=== PATIENT | female | born 1940 | race Caucasian/White ===

== ENCOUNTER 2023-08-09 11:43 | Inpatient (IN) ==
[2023-08-09] MEDS ORDERED: Polyethylene Glycol 3350 17 GM PACKET PO PRN (14:46)
[2023-08-09] MEDS ORDERED: Senna TAB 8.6 mg TAB PO PRN (14:46)
[2023-08-09] MEDS ORDERED: Magnesium Hydroxide LIQ 30 ML UDC PO PRN (14:46)
[2023-08-09] MEDS ORDERED: Al Hydrox/Mg Hydrox/Simet LIQ 30 ML UDC PO PRN (14:46)
[2023-08-09] MEDS ORDERED: Albuterol HFA INHALER 8 gm MDI INH PRN (14:52)
[2023-08-09] MEDS: CMCS:FLUTICAS/UMECLI/VILANT 200-62.5-25 MDI (NF) INH SCH (16:19)
[2023-08-09] MEDS: Heparin 5000 UNITS/ML 1 mL VIAL SUBCUT ONE (16:28)
[2023-08-09] MEDS: CMCS:SitaGLIPtin 100 mg TAB (NF) PO SCH (17:42)
[2023-08-09] MEDS: Morphine 2 MG/ML SYRINGE IV PRN (20:20)
[2023-08-09] MEDS: Lactated Ringers 1000 ml BAG 1,000 ML IV SCH (23:40)
[2023-08-09] MEDS: Ondansetron 4 mg VIAL 2 MG/ML 2 ml VIAL IV PRN (23:45)
[2023-08-10 06:28] LABS: INR 1.13 (0.83-1.13)
[2023-08-10 06:29] LABS: ABS Lymphocytes 0.9 10^3/uL (1.0-4.8); ABS Monocytes 0.4 10^3/uL (0.0-0.9); ABS Neutrophils 5.4 10^3/uL (1.5-7.6); Eosinophil % 0.7 %; Hematocrit 29.6 % (35-45); Hemoglobin 9.9 g/dL (11.5-14.3); Lymphocyte % 13.7 %; Mean Corpuscular Hemoglobin 31.1 pg (27-33); Mean Corpuscular Hgb Conc 33.6 g/dL (31-36); Mean Corpuscular Volume 92.5 fL (80-97); Mean Platelet Volume 7.4 fL (7.5-11.2); Nucleated Red Blood Cells % 0.1 %/100WBC (0.0-0.8); Platelet Count 178 10^3/uL (150-450); Red Cell Distribution Width 14.2 % (12-17); White Blood Count 6.8 10^3/uL (3.8-11.8)
[2023-08-10 06:50] LABS: Calcium 8.9 mg/dL (8.6-10.3); Creatinine, Serum 1.32 mg/dL (0.51-0.95); Magnesium 1.8 mg/dL (1.9-2.7); Potassium 5.5 mmol/L (3.5-5.0); eGFR CKD-EPI 40.8 (>60)
[2023-08-10] MEDS: Dextrose 50% Syringe 50 ml 25 GM/50 ML SYRINGE IV PUSH ONE (08:38)
[2023-08-10] MEDS ORDERED: FLUTICAS/UMECLI/VILANT 200-62.5-25 MDI (NF) INH SCH (09:00)
[2023-08-10] MEDS ORDERED: Sitagliptin 50 mg TAB (NF) PO SCH (09:00)
[2023-08-10] MEDS: Magnesium Sulfate IV 1GM/100ML 1 GM/100 ML BAG IV ONE (09:07)
[2023-08-10] MEDS: SODIUM ZIRCONIUM CYCLOSILICATE 10 GM PACKET PO ONE ×3 (09:19→19:23)
[2023-08-10 17:43] LABS: Calcium 8.7 mg/dL (8.6-10.3); Creatinine, Serum 1.21 mg/dL (0.51-0.95); Potassium 4.9 mmol/L (3.5-5.0); eGFR CKD-EPI 45.3 (>60)
[2023-08-10] MEDS: Heparin 5000 UNITS/ML 1 mL VIAL SUBCUT ONE (18:56)
[2023-08-11 05:37] LABS: ABS Eosinophils 0.1 10^3/uL (0.0-0.5); ABS Lymphocytes 0.8 10^3/uL (1.0-4.8); ABS Monocytes 0.5 10^3/uL (0.0-0.9); ABS Neutrophils 5.7 10^3/uL (1.5-7.6); Eosinophil % 0.8 %; Hematocrit 27.8 % (35-45); Hemoglobin 9.5 g/dL (11.5-14.3); Lymphocyte % 11.1 %; Mean Corpuscular Hemoglobin 31.2 pg (27-33); Mean Corpuscular Hgb Conc 34.1 g/dL (31-36); Mean Corpuscular Volume 91.5 fL (80-97); Nucleated Red Blood Cells % 0.1 %/100WBC (0.0-0.8); Platelet Count 154 10^3/uL (150-450); Red Blood Count 3.03 10^6/uL (3.63-4.92); Red Cell Distribution Width 14.2 % (12-17)
[2023-08-11 05:51] LABS: Calcium 8.6 mg/dL (8.6-10.3); Creatinine, Serum 1.09 mg/dL (0.51-0.95); Magnesium 1.7 mg/dL (1.9-2.7); Potassium 4.6 mmol/L (3.5-5.0); eGFR CKD-EPI 51.4 (>60)
[2023-08-11] MEDS: Magnesium Sulfate 2 gm BAG 2 GM/50 ML BAG IVPB ONE (09:10)
[2023-08-11] MEDS: Lactated Ringers 1000 ml BAG 1,000 ML IV SCH ×2 (09:12→19:51)
[2023-08-11] MEDS: Buffered Lidocaine 1% SYRIN 1 ml INTRADERM ONE (10:14)
[2023-08-11] MEDS: Magnesium Sulfate IV 1GM/100ML 1 GM/100 ML BAG IV ONE (11:40)
[2023-08-11] MEDS ORDERED: ROPIVACAINE 5 MG/ML 30 ML BTL (0.5%) ONE (13:04)
[2023-08-11] MEDS ORDERED: Propofol 10 MG/ML 20 ML BTL ONE ×2 (13:15→16:09)
[2023-08-11] MEDS ORDERED: Ondansetron 4 mg VIAL 2 MG/ML 2 ml VIAL IV PRN (13:17)
[2023-08-11] MEDS ORDERED: fentaNYL 100 mcg/2 ml 50 MCG/ML VIAL IV PRN (13:17)
[2023-08-11] MEDS ORDERED: Naloxone 0.4 mg VIAL 0.4 mg/ml 1 ml VIAL IV PRN (13:17)
[2023-08-11] MEDS ORDERED: fentaNYL 250 mcg/5 ml 50 MCG/ML 5 ml VIAL (250 MCG) ONE (13:18)
[2023-08-11] MEDS ORDERED: Midazolam 2 mg/2 ml VIAL 1 mg/ml 2 ml VIAL (2 mg) ONE (13:18)
[2023-08-11] MEDS ORDERED: Lidocaine 2% PF 5 ML VIAL ONE (13:18)
[2023-08-11] MEDS ORDERED: Tranexamic Acid 1 GM/100ML BAG 2,000 MG/200 ML BAG IV ONE (13:20)
[2023-08-11] MEDS ORDERED: ceFAZolin 2 GM in NS PREMIX 2 GM/100 ML BAG IVPB ONE (13:41)
[2023-08-11] MEDS ORDERED: ceFAZolin 2 GM PREMIX 2 GM/50 ML BAG ONE (13:44)
[2023-08-11] MEDS ORDERED: KETAMINE HCL 10 MG/ML 20 ml VIAL (200 MG) ONE (13:56)
[2023-08-11] MEDS ORDERED: Bupivacaine 0.5% SDV PF 30ML VIAL ONE (13:57)
[2023-08-11] MEDS ORDERED: Phenylephrine 40 mcg/mL 10mL (400mcg) SYRINGE ONE (14:11)
[2023-08-11] MEDS ORDERED: Phenylephrine IV 10 MG/ML 1 ml VIAL ONE (14:20)
[2023-08-11] MEDS ORDERED: Acetaminophen IV 1 GM/100ML 1,000 MG/100 ML BAG IV ONE (14:54)
[2023-08-11] MEDS ORDERED: Ondansetron 4 mg VIAL 2 MG/ML 2 ml VIAL ONE (14:55)
[2023-08-11] MEDS: Magnesium Hydroxide LIQ 30 ML UDC PO SCH (21:15)
[2023-08-11] MEDS: ceFAZolin 1 GM ADVAN 1 GM in NS 0.9% 50 ML 50 ML IVPB SCH (22:32)
[2023-08-12 06:54] LABS: ABS Lymphocytes 0.5 10^3/uL (1.0-4.8); ABS Monocytes 0.4 10^3/uL (0.0-0.9); ABS Neutrophils 5.9 10^3/uL (1.5-7.6); Eosinophil % 0.5 %; Hematocrit 24.8 % (35-45); Hemoglobin 8.3 g/dL (11.5-14.3); Lymphocyte % 7.6 %; Mean Corpuscular Hemoglobin 30.4 pg (27-33); Mean Corpuscular Hgb Conc 33.6 g/dL (31-36); Mean Corpuscular Volume 90.6 fL (80-97); Mean Platelet Volume 7.6 fL (7.5-11.2); Platelet Count 164 10^3/uL (150-450); Red Blood Count 2.74 10^6/uL (3.63-4.92); Red Cell Distribution Width 14.3 % (12-17); White Blood Count 6.8 10^3/uL (3.8-11.8)
[2023-08-12 08:03] LABS: Albumin 3.1 g/dL (3.2-5.2); Albumin/Globulin Ratio 1.2 (1-3); Calcium 8.3 mg/dL (8.6-10.3); Creatinine, Serum 1.17 mg/dL (0.51-0.95); Globulin 2.5 g/dL (2-4); Total Bilirubin 0.5 mg/dL (0.2-1.0); Total Protein 5.6 g/dL (6.4-8.9); eGFR CKD-EPI 47.2 (>60)
[2023-08-12 12:51] LABS: % Iron Saturation 10 % (15-55); .Transferrin 142 mg/dL (203-362); Iron < 20 ug/dL (50-212); Total Iron Binding Capacity 199 mcg/dL (250-450); Unsaturated Iron Binding 179 ug/dL
[2023-08-12] MEDS: Enoxaparin 40 MG/0.4 ML SYR SUBCUT SCH (12:57)
[2023-08-12 13:11] LABS: Ferritin 311.2 ng/mL (11-307)
[2023-08-12] MEDS: Iron Sucrose 200 MG in NS 0.9% 100 ml BAG 100 ML IVPB SCH (17:43)
[2023-08-12] MEDS: SODIUM ZIRCONIUM CYCLOSILICATE 10 GM PACKET PO SCH (19:55)
[2023-08-13 06:04] LABS: ABS Eosinophils 0.1 10^3/uL (0.0-0.5); ABS Lymphocytes 0.6 10^3/uL (1.0-4.8); ABS Monocytes 0.5 10^3/uL (0.0-0.9); Eosinophil % 2.2 %; Hematocrit 23.8 % (35-45); Mean Corpuscular Hemoglobin 31.1 pg (27-33); Mean Corpuscular Hgb Conc 33.7 g/dL (31-36); Mean Corpuscular Volume 92.2 fL (80-97); Mean Platelet Volume 7.7 fL (7.5-11.2); Platelet Count 161 10^3/uL (150-450); Red Blood Count 2.58 10^6/uL (3.63-4.92); Red Cell Distribution Width 14.5 % (12-17); White Blood Count 6.1 10^3/uL (3.8-11.8)
[2023-08-13 06:26] LABS: Albumin 3.1 g/dL (3.2-5.2); Albumin/Globulin Ratio 1.2 (1-3); Calcium 8.2 mg/dL (8.6-10.3); Creatinine, Serum 1.49 mg/dL (0.51-0.95); Globulin 2.5 g/dL (2-4); Potassium 4.6 mmol/L (3.5-5.0); Total Bilirubin 0.4 mg/dL (0.2-1.0); Total Protein 5.6 g/dL (6.4-8.9); eGFR CKD-EPI 35.3 (>60)
[2023-08-13] MEDS: Polyethylene Glycol 3350 17 GM PACKET PO SCH (21:41)
[2023-08-14 06:27] LABS: ABS Eosinophils 0.1 10^3/uL (0.0-0.5); ABS Lymphocytes 0.4 10^3/uL (1.0-4.8); ABS Monocytes 0.5 10^3/uL (0.0-0.9); ABS Neutrophils 5.9 10^3/uL (1.5-7.6); Eosinophil % 1.8 %; Hematocrit 22.7 % (35-45); Hemoglobin 7.8 g/dL (11.5-14.3); Lymphocyte % 6.4 %; Mean Corpuscular Hemoglobin 31.5 pg (27-33); Mean Corpuscular Hgb Conc 34.3 g/dL (31-36); Mean Corpuscular Volume 91.8 fL (80-97); Mean Platelet Volume 7.8 fL (7.5-11.2); Platelet Count 197 10^3/uL (150-450); Red Blood Count 2.48 10^6/uL (3.63-4.92); Red Cell Distribution Width 14.7 % (12-17); White Blood Count 6.9 10^3/uL (3.8-11.8)
[2023-08-14 06:51] LABS: Albumin 3.2 g/dL (3.2-5.2); Albumin/Globulin Ratio 1.2 (1-3); Calcium 8.4 mg/dL (8.6-10.3); Creatinine, Serum 1.31 mg/dL (0.51-0.95); Globulin 2.7 g/dL (2-4); Potassium 5.2 mmol/L (3.5-5.0); Total Bilirubin 0.4 mg/dL (0.2-1.0); Total Protein 5.9 g/dL (6.4-8.9); eGFR CKD-EPI 41.2 (>60)
[2023-08-15 06:48] LABS: ABS Eosinophils 0.2 10^3/uL (0.0-0.5); ABS Lymphocytes 0.5 10^3/uL (1.0-4.8); ABS Monocytes 0.4 10^3/uL (0.0-0.9); ABS Nucleated RBC 0.01 10^3/ul; Eosinophil % 2.9 %; Hematocrit 23.2 % (35-45); Hemoglobin 7.9 g/dL (11.5-14.3); Lymphocyte % 8.2 %; Mean Corpuscular Hemoglobin 31.3 pg (27-33); Mean Corpuscular Hgb Conc 34.2 g/dL (31-36); Mean Corpuscular Volume 91.7 fL (80-97); Mean Platelet Volume 7.3 fL (7.5-11.2); Nucleated Red Blood Cells % 0.1 %/100WBC (0.0-0.8); Platelet Count 229 10^3/uL (150-450); Red Blood Count 2.53 10^6/uL (3.63-4.92); Red Cell Distribution Width 14.5 % (12-17); White Blood Count 6.1 10^3/uL (3.8-11.8)
[2023-08-15 07:07] LABS: Albumin 3.2 g/dL (3.2-5.2); Albumin/Globulin Ratio 1.2 (1-3); Calcium 8.4 mg/dL (8.6-10.3); Creatinine, Serum 1.2 mg/dL (0.51-0.95); Globulin 2.7 g/dL (2-4); Magnesium 2.2 mg/dL (1.9-2.7); Phosphorus 2.2 mg/dL (2.5-5.0); Potassium 4.3 mmol/L (3.5-5.0); Total Bilirubin 0.5 mg/dL (0.2-1.0); Total Protein 5.9 g/dL (6.4-8.9); eGFR CKD-EPI 45.8 (>60)
[2023-08-16 06:11] LABS: ABS Eosinophils 0.2 10^3/uL (0.0-0.5); ABS Lymphocytes 0.6 10^3/uL (1.0-4.8); ABS Monocytes 0.4 10^3/uL (0.0-0.9); ABS Neutrophils 4.4 10^3/uL (1.5-7.6); ABS Nucleated RBC 0.01 10^3/ul; Hematocrit 22.5 % (35-45); Hemoglobin 7.6 g/dL (11.5-14.3); Lymphocyte % 10.8 %; Mean Corpuscular Hemoglobin 31.6 pg (27-33); Mean Corpuscular Hgb Conc 33.9 g/dL (31-36); Mean Corpuscular Volume 93.2 fL (80-97); Mean Platelet Volume 7.2 fL (7.5-11.2); Nucleated Red Blood Cells % 0.2 %/100WBC (0.0-0.8); Platelet Count 251 10^3/uL (150-450); Red Blood Count 2.41 10^6/uL (3.63-4.92); Red Cell Distribution Width 14.7 % (12-17); White Blood Count 5.6 10^3/uL (3.8-11.8)
[2023-08-16 06:32] LABS: Albumin 2.9 g/dL (3.2-5.2); Albumin/Globulin Ratio 1.2 (1-3); Calcium 8.1 mg/dL (8.6-10.3); Creatinine, Serum 1.24 mg/dL (0.51-0.95); Globulin 2.4 g/dL (2-4); Phosphorus 2.1 mg/dL (2.5-5.0); Potassium 4.4 mmol/L (3.5-5.0); Total Bilirubin 0.4 mg/dL (0.2-1.0); Total Protein 5.3 g/dL (6.4-8.9)
[2023-08-16 10:04] VITALS: BP 134/65
[2023-08-16 10:34] LABS: Rapid COVID-19 Molecular Undetected (Undetected)
== END 2023-08-16 11:50 | DRG 522 ==
LOC: ED 11:43 → SUATTDRO 14:46 → EDHOLD 14:46 → SSU 18:29
PROVIDERS: ADMIT Hospitalist; ATTEND Internal Medicine

== ENCOUNTER 2023-12-23 09:06 | Observation (INO) ==
[2023-12-23] MEDS ORDERED: Tranexamic Acid 1 GM/100ML BAG 2,000 MG/200 ML BAG IV ONE (10:03)
[2023-12-23] MEDS ORDERED: Famotidine IV 10 MG/ML 2 ml VIAL (20 mg) ONE (10:03)
[2023-12-23] MEDS ORDERED: ceFAZolin 2 GM PREMIX 2 GM/50 ML BAG ONE (10:03)
[2023-12-23 10:11] LABS: Rapid COVID-19 Molecular Undetected (Undetected)
[2023-12-23] MEDS: Famotidine IV 10 MG/ML 2 ml VIAL (20 mg) IV ONE (10:19)
[2023-12-23] MEDS ORDERED: Propofol 10 MG/ML 20 ML BTL ONE (10:25)
[2023-12-23] MEDS ORDERED: Lidocaine 2% PF 5 ML VIAL ONE (10:25)
[2023-12-23] MEDS ORDERED: Midazolam 2 mg/2 ml VIAL 1 mg/ml 2 ml VIAL (2 mg) ONE (10:26)
[2023-12-23] MEDS ORDERED: fentaNYL 100 mcg/2 ml 50 MCG/ML VIAL ONE ×2 (10:26→15:06)
[2023-12-23] MEDS ORDERED: ROPIVACAINE 5 MG/ML 30 ML BTL (0.5%) ONE (12:18)
[2023-12-23] MEDS ORDERED: Naloxone 0.4 mg VIAL 0.4 mg/ml 1 ml VIAL IV PRN (12:19)
[2023-12-23] MEDS ORDERED: Levalbuterol 0.63MG/3ML NEB UNIT OF USE INH PRN (12:19)
[2023-12-23] MEDS ORDERED: Ondansetron ODT 4 mg TAB 4 MG TAB PO PRN (12:35)
[2023-12-23] MEDS ORDERED: Calcium Carb (TUMS) 500 mg CHEW TAB PO PRN (12:35)
[2023-12-23] MEDS ORDERED: Lactulose 30 ml UDC PO PRN (12:35)
[2023-12-23] MEDS ORDERED: Magnesium Hydroxide LIQ 30 ML UDC PO PRN (12:35)
[2023-12-23] MEDS ORDERED: Ondansetron 4 mg VIAL 2 MG/ML 2 ml VIAL IV PRN (12:35)
[2023-12-23] MEDS ORDERED: Morphine 2 MG/ML SYRINGE IV PRN (12:35)
[2023-12-23] MEDS ORDERED: Rocuronium 50 mg VIAL 10 mg/ml 5 ml VIAL (50 mg) ONE (12:41)
[2023-12-23] MEDS ORDERED: Ondansetron 4 mg VIAL 2 MG/ML 2 ml VIAL ONE ×2 (13:10)
[2023-12-23] MEDS ORDERED: KETAMINE HCL 10 MG/ML 20 ml VIAL (200 MG) ONE (13:10)
[2023-12-23] MEDS ORDERED: HYDROmorphone 0.5 MG/0.5 ML SYRINGE ONE (13:14)
[2023-12-23] MEDS: fentaNYL 100 mcg/2 ml 50 MCG/ML VIAL IV PRN (15:07)
[2023-12-23] MEDS ORDERED: Prochlorperazine 5 mg/ml 2 ml VIAL (10 mg) ONE (15:41)
[2023-12-23] MEDS: Prochlorperazine 5 mg/ml 2 ml VIAL (10 mg) IV PRN (15:42)
[2023-12-23] MEDS ORDERED: Albuterol HFA INHALER 8 gm MDI INH PRN (16:21)
[2023-12-23] MEDS: Lactated Ringers 1000 ml BAG 1,000 ML IV SCH ×2 (17:18)
[2023-12-23] MEDS: Buffered Lidocaine 1% SYRIN 1 ml INTRADERM ONE (17:18)
[2023-12-23] MEDS: Magnesium Hydroxide LIQ 30 ML UDC PO SCH (22:00)
[2023-12-23] MEDS: ceFAZolin 2 GM in NS PREMIX 2 GM/100 ML BAG IVPB SCH (22:07)
[2023-12-24 06:50] LABS: Hematocrit 25.5 % (35-45); Hemoglobin 8.6 g/dL (11.5-14.3); Mean Platelet Volume 7.3 fL (7.5-11.2); Platelet Count 208 10^3/uL (150-450)
[2023-12-24 08:26] LABS: Calcium 8.1 mg/dL (8.6-10.3); Creatinine, Serum 1.41 mg/dL (0.51-0.95); Potassium 5.1 mmol/L (3.5-5.0); eGFR CKD-EPI 37.5 (>60)
[2023-12-24] MEDS: Vitamin THERAPEUTIC TAB PO SCH (09:12)
[2023-12-24] MEDS: CMCS: SitaGLIPtin 25mg TAB (NF) 25 MG TAB PO SCH (09:13)
[2023-12-24] MEDS: FLUTICAS/UMECLI/VILANT 200-62.5-25 MDI (NF) INH SCH (09:14)
[2023-12-24 14:38] VITALS: BP 113/44
== END 2023-12-24 15:35 | disposition home or self-care (01) ==
LOC: AA 09:06 → INTOOBSV 09:06 → SSU 16:10
PROVIDERS: ADMIT Orthopaedic Surgery Adult Reconstructive Orthopaedic Surgery; ATTEND Orthopaedic Surgery Adult Reconstructive Orthopaedic Surgery

== ENCOUNTER 2024-05-05 10:32 | Inpatient (IN) ==
[2024-05-05 10:46] LABS: ABS Basophils 0.1 10^3/uL (0.0-0.1); ABS Eosinophils 0.4 10^3/uL (0.0-0.5); ABS Lymphocytes 0.7 10^3/uL (1.0-4.8); ABS Monocytes 0.5 10^3/uL (0.0-0.9); ABS Neutrophils 9.8 10^3/uL (1.5-7.6); ABS Nucleated RBC 0.01 10^3/ul; Eosinophil % 3.1 %; Hematocrit 25.5 % (35-45); Hemoglobin 8.3 g/dL (11.5-14.3); Lymphocyte % 6.2 %; Mean Corpuscular Hemoglobin 29.2 pg (27-33); Mean Corpuscular Hgb Conc 32.8 g/dL (31-36); Platelet Count 108 10^3/uL (150-450); Red Blood Count 2.86 10^6/uL (3.63-4.92); Red Cell Distribution Width 15.7 % (12-17); White Blood Count 11.4 10^3/uL (3.8-11.8)
[2024-05-05 10:58] LABS: Activated Partial Thrombo Time 27.8 seconds (26.0-38.0); INR 1.24 (0.85-1.14)
[2024-05-05] MEDS ORDERED: Sulfur Hexaflouride MICROSPHR 25 MG VIAL IV PRN (11:23)
[2024-05-05 11:41] LABS: Albumin 3.6 g/dL (3.2-5.2); Albumin/Globulin Ratio 1.6 (1-3); Calcium 9.5 mg/dL (8.6-10.3); Creatinine, Serum 3.63 mg/dL (0.51-0.95); Direct Bilirubin 0.1 mg/dL (0.03-0.18); Globulin 2.3 g/dL (2-4); HDL Cholesterol 34.2 mg/dL; Indirect Bilirubin 0.5 mg/dL (0.3-1.0); Potassium 4.5 mmol/L (3.5-5.0); Total Bilirubin 0.6 mg/dL (0.2-1.0); Total Protein 5.9 g/dL (6.4-8.9)
[2024-05-05] MEDS: Lactated Ringers 1000 ml BAG 1,000 ML IV SCH ×2 (14:05→17:56)
[2024-05-05] MEDS ORDERED: Albuterol HFA INHALER 8 gm MDI INH PRN (14:05)
[2024-05-05 14:10] LABS: Magnesium 1.7 mg/dL (1.9-2.7)
[2024-05-05 14:18] LABS: TSH Ultra Thyroid Stim Horm 1.44 mcIU/mL (0.34-5.60)
[2024-05-05 14:22] LABS: Ferritin 1342.2 ng/mL (11-307)
[2024-05-05 14:26] LABS: Folate 11.24 ng/mL (5.90-24.80)
[2024-05-05] MEDS ORDERED: Dextrose 50% Syringe 50 ml 25 GM/50 ML SYRINGE IV PUSH PRN (16:17)
[2024-05-05] MEDS: Gadoteridol (CONTRAST) 279.3 MG/ML 10 ML IV ONE (17:32)
[2024-05-05] MEDS: Aspirin EC 81 mg TAB.EC (enteric coated) PO SCH (18:03)
[2024-05-05] MEDS: Magnesium Sulfate 2 gm BAG 2 GM/50 ML BAG IVPB ONE (18:03)
[2024-05-05] MEDS: Iodixanol 320 (CONTRAST) 100 ML SDV IV ONE (18:10)
[2024-05-05] MEDS: Heparin 5000 UNITS/ML 1 mL VIAL SUBCUT SCH (21:10)
[2024-05-06] MEDS: Ondansetron 4 mg VIAL 2 MG/ML 2 ml VIAL IV PRN (04:51)
[2024-05-06 05:25] LABS: Urine Appearance Clear; Urine Bilirubin Negative (Negative); Urine Blood Negative (Negative); Urine Color Colorless; Urine Glucose Negative (Negative); Urine Ketones Negative (Negative); Urine Nitrite Negative (Negative); Urine Protein Negative (Negative); Urine Specific Gravity 1.015 (1.002-1.030); Urine Urobilinogen Negative (Negative)
[2024-05-06 05:36] LABS: Urine Creatinine Concentration 45.5 mg/dL (20.00-320.00)
[2024-05-06 06:31] LABS: Albumin 3.1 g/dL (3.2-5.2); Albumin/Globulin Ratio 1.6 (1-3); Calcium 9.5 mg/dL (8.6-10.3); Creatinine, Serum 2.65 mg/dL (0.51-0.95); Magnesium 2.2 mg/dL (1.9-2.7); Potassium 4.7 mmol/L (3.5-5.0); Total Bilirubin 0.5 mg/dL (0.2-1.0); Total Protein 5.1 g/dL (6.4-8.9); eGFR CKD-EPI 17.6 (>60)
[2024-05-06 07:00] LABS: Hematocrit 22.8 % (35-45); Hemoglobin 7.4 g/dL (11.5-14.3); Mean Corpuscular Hemoglobin 28.9 pg (27-33); Mean Corpuscular Hgb Conc 32.5 g/dL (31-36); Mean Corpuscular Volume 88.7 fL (80-97); Red Blood Count 2.57 10^6/uL (3.63-4.92); Red Cell Distribution Width 15.9 % (12-17); White Blood Count 7.2 10^3/uL (3.8-11.8)
[2024-05-06] MEDS: CMCS: FLUTICAS/UMECLI/VILANT 200-62.5-25 MDI (NF) INH SCH (07:33)
[2024-05-06 08:23] LABS: ABS Basophils 0.1 10^3/uL (0.0-0.1); ABS Eosinophils 0.2 10^3/uL (0.0-0.5); ABS Lymphocytes 0.5 10^3/uL (1.0-4.8); ABS Monocytes 0.4 10^3/uL (0.0-0.9); ABS Nucleated RBC 0.01 10^3/ul; Eosinophil % 3.3 %; Mean Platelet Volume 8.9 fL (7.5-11.2); Nucleated Red Blood Cells % 0.1 %/100WBC (0.0-0.8); Platelet Count 95 10^3/uL (150-450)
[2024-05-06] MEDS: NS 0.9% 1000 ml BAG 1,000 ML IV SCH (11:50)
[2024-05-06 12:36] LABS: Calcium 9.6 mg/dL (8.6-10.3); Creatinine, Serum 2.71 mg/dL (0.51-0.95); Magnesium 2.2 mg/dL (1.9-2.7); Phosphorus 4.7 mg/dL (2.5-5.0); Potassium 4.9 mmol/L (3.5-5.0); eGFR CKD-EPI 17.1 (>60)
[2024-05-06 12:45] LABS: Hematocrit 22.9 % (35-45); Hemoglobin 7.5 g/dL (11.5-14.3); Mean Corpuscular Hgb Conc 32.6 g/dL (31-36); Mean Corpuscular Volume 89.1 fL (80-97); Mean Platelet Volume 8.4 fL (7.5-11.2); Platelet Count 100 10^3/uL (150-450); Red Blood Count 2.57 10^6/uL (3.63-4.92); Red Cell Distribution Width 15.7 % (12-17); White Blood Count 7.8 10^3/uL (3.8-11.8)
[2024-05-06 18:17] LABS: Hematocrit 22.4 % (35-45); Hemoglobin 7.4 g/dL (11.5-14.3)
[2024-05-07 06:15] LABS: Hematocrit 22.8 % (35-45); Hemoglobin 7.5 g/dL (11.5-14.3); Mean Corpuscular Hemoglobin 29.4 pg (27-33); Mean Corpuscular Volume 89.2 fL (80-97); Mean Platelet Volume 8.3 fL (7.5-11.2); Platelet Count 109 10^3/uL (150-450); Red Blood Count 2.56 10^6/uL (3.63-4.92); White Blood Count 5.9 10^3/uL (3.8-11.8)
[2024-05-07 08:03] LABS: Calcium 9.6 mg/dL (8.6-10.3); Creatinine, Serum 2.51 mg/dL (0.51-0.95); Potassium 4.8 mmol/L (3.5-5.0); eGFR CKD-EPI 18.8 (>60)
[2024-05-08 06:24] LABS: ABS Basophils 0.1 10^3/uL (0.0-0.1); ABS Eosinophils 0.2 10^3/uL (0.0-0.5); ABS Lymphocytes 0.6 10^3/uL (1.0-4.8); ABS Monocytes 0.5 10^3/uL (0.0-0.9); ABS Neutrophils 5.7 10^3/uL (1.5-7.6); Eosinophil % 3.5 %; Hematocrit 22.2 % (35-45); Hemoglobin 7.3 g/dL (11.5-14.3); Lymphocyte % 7.9 %; Mean Corpuscular Hemoglobin 29.3 pg (27-33); Mean Corpuscular Volume 88.8 fL (80-97); Mean Platelet Volume 8.5 fL (7.5-11.2); Platelet Count 99 10^3/uL (150-450); Red Cell Distribution Width 15.4 % (12-17); White Blood Count 7.1 10^3/uL (3.8-11.8)
[2024-05-08 06:32] LABS: Calcium 9.9 mg/dL (8.6-10.3); Creatinine, Serum 2.17 mg/dL (0.51-0.95); Potassium 5.3 mmol/L (3.5-5.0); eGFR CKD-EPI 22.3 (>60)
[2024-05-08] MEDS: SitaGLIPtin 25mg TAB (NF) 25 MG TAB PO SCH (08:14)
[2024-05-09 06:38] LABS: ABS Basophils 0.1 10^3/uL (0.0-0.1); ABS Eosinophils 0.1 10^3/uL (0.0-0.5); ABS Lymphocytes 0.5 10^3/uL (1.0-4.8); ABS Monocytes 0.5 10^3/uL (0.0-0.9); ABS Neutrophils 5.7 10^3/uL (1.5-7.6); Eosinophil % 2.1 %; Hematocrit 22.9 % (35-45); Hemoglobin 7.5 g/dL (11.5-14.3); Lymphocyte % 7.8 %; Mean Corpuscular Hemoglobin 29.2 pg (27-33); Mean Corpuscular Hgb Conc 32.9 g/dL (31-36); Mean Corpuscular Volume 88.6 fL (80-97); Mean Platelet Volume 8.3 fL (7.5-11.2); Nucleated Red Blood Cells % 0.1 %/100WBC (0.0-0.8); Platelet Count 91 10^3/uL (150-450); Red Blood Count 2.59 10^6/uL (3.63-4.92); Red Cell Distribution Width 15.3 % (12-17)
[2024-05-09 06:40] LABS: Calcium 10.3 mg/dL (8.6-10.3); Creatinine, Serum 1.85 mg/dL (0.51-0.95); Potassium 5.7 mmol/L (3.5-5.0); eGFR CKD-EPI 27.1 (>60)
[2024-05-09] MEDS: Lactulose 30 ml UDC PO PRN (21:25)
[2024-05-10 07:18] LABS: Hematocrit 24.5 % (35-45); Hemoglobin 8.1 g/dL (11.5-14.3); Mean Corpuscular Hemoglobin 29.3 pg (27-33); Mean Corpuscular Hgb Conc 33.2 g/dL (31-36); Mean Platelet Volume 8.8 fL (7.5-11.2); Platelet Count 95 10^3/uL (150-450); Red Blood Count 2.78 10^6/uL (3.63-4.92); Red Cell Distribution Width 15.6 % (12-17); White Blood Count 9.2 10^3/uL (3.8-11.8)
[2024-05-10 07:28] LABS: Calcium 10.4 mg/dL (8.6-10.3); Creatinine, Serum 1.69 mg/dL (0.51-0.95); Potassium 5.2 mmol/L (3.5-5.0); eGFR CKD-EPI 30.2 (>60)
[2024-05-10 15:43] LABS: Albumin 3.4 g/dL (3.2-5.2); Albumin/Globulin Ratio 1.5 (1-3); Globulin 2.2 g/dL (2-4); Total Bilirubin 0.6 mg/dL (0.2-1.0); Total Protein 5.6 g/dL (6.4-8.9)
[2024-05-10] MEDS: Lidocaine PATCH 5% PATCH TRANSDERM SCH (18:03)
[2024-05-11 07:02] LABS: Albumin 3.4 g/dL (3.2-5.2); Albumin/Globulin Ratio 1.5 (1-3); Calcium 10.3 mg/dL (8.6-10.3); Creatinine, Serum 1.55 mg/dL (0.51-0.95); Globulin 2.2 g/dL (2-4); Potassium 5.2 mmol/L (3.5-5.0); Total Bilirubin 0.6 mg/dL (0.2-1.0); Total Protein 5.6 g/dL (6.4-8.9); eGFR CKD-EPI 33.5 (>60)
[2024-05-11 07:05] LABS: ABS Basophils 0.1 10^3/uL (0.0-0.1); ABS Eosinophils 0.2 10^3/uL (0.0-0.5); ABS Lymphocytes 0.6 10^3/uL (1.0-4.8); ABS Monocytes 0.5 10^3/uL (0.0-0.9); ABS Neutrophils 7.2 10^3/uL (1.5-7.6); Eosinophil % 2.5 %; Hematocrit 24.6 % (35-45); Hemoglobin 8.1 g/dL (11.5-14.3); Lymphocyte % 6.6 %; Mean Corpuscular Hemoglobin 29.2 pg (27-33); Mean Corpuscular Hgb Conc 32.9 g/dL (31-36); Mean Corpuscular Volume 88.5 fL (80-97); Mean Platelet Volume 8.8 fL (7.5-11.2); Platelet Count 91 10^3/uL (150-450); Red Blood Count 2.78 10^6/uL (3.63-4.92); Red Cell Distribution Width 15.3 % (12-17); White Blood Count 8.6 10^3/uL (3.8-11.8)
[2024-05-11] MEDS ORDERED: Naloxone 0.4 mg VIAL 0.4 mg/ml 1 ml VIAL IV PUSH PRN (08:34)
[2024-05-11] MEDS: fentaNYL 100 mcg/2 ml 50 MCG/ML VIAL ONE (10:42)
[2024-05-11] MEDS: fentaNYL 100 mcg/2 ml 50 MCG/ML VIAL IV SLOW PU ONE (10:43)
[2024-05-11 11:41] LABS: Body Fluid Appearance Cloudy; Body Fluid Color Yellow; Body Fluid Source Pleural Fluid
[2024-05-11 12:07] LABS: Body Fluid Total Nucleated 232 /mcL
[2024-05-11 12:45] LABS: Body Fluid Mono 41 %; Body Fluid Other Cells 16; Body Fluid Total Cells Counted 200
[2024-05-12] MEDS: Aspirin EC 81 mg TAB.EC (enteric coated) PO SCH (07:38)
[2024-05-12 09:34] VITALS: BP 131/61
[2024-05-12 13:31] LABS: Lactate Dehydrogenase, BF 115 U/L
[2024-05-13 09:05] LABS: Fluid Type, Albumin PLEURAL FLUID; Fluid Type, Protein, Total PLEURAL FLUID; Glucose, BF 99 mg/dL; Total Protein, BF 1.6 g/dL
== END 2024-05-12 15:11 | disposition home health service (06) | DRG 988 ==
LOC: ED 10:32 → EDHOLD 10:32 → MEDTELE 13:16 → SUATTDRO 13:16 → MEDTELE 14:23 → SUATTDRO 05-07 12:00
PROVIDERS: ADMIT Student in an Organized Health Care Education/Training Program; ATTEND Hospitalist